=== PATIENT | male | born 1980 | race American Indian/Alaskan Native ===

== ENCOUNTER 2017-07-29 18:37 | Emergency (ER) | payer OTHER ==
[2017-07-29 18:59] VITALS: BP 112/65
[2017-07-29 19:16] LABS: Hematocrit 44.1 % (35.5-45.6); Hemoglobin 14.9 gm/dl (11.8-15.2); Mean Corpuscular HGB Conc 34 % (32-34); Mean Corpuscular Hemoglobin 34 pg (28-32); Mean Corpuscular Volume 99 fl (84-94); Platelet Count 172 K/mm3 (140-440); Red Blood Count 4.46 M/mm3 (3.65-5.03); Red Cell Distribution Width 12.8 % (13.2-15.2); White Blood Count 10.2 K/mm3 (4.5-11.0)
[2017-07-29 19:31] LABS: Anion Gap 19 mmol/L; BUN/Creatinine Ratio 14; Blood Urea Nitrogen 13 mg/dL (9-20); Carbon Dioxide 25 mmol/L (22-30); Chloride 99.7 mmol/L (98-107); Glucose 107 mg/dL (75-100); Potassium 3.8 mmol/L (3.6-5.0); Sodium 140 mmol/L (137-145)
[2017-07-29 21:31] LABS: Mucus,Urine FEW /HPF
[2017-07-29 21:39] LABS: Bilirubin,Urine NEG (Negative); Blood,Urine NEG (Negative); Ketones,Urine NEG (Negative); Leukocyte Esterase,Urine NEG (Negative); Nitrite,Urine NEG (Negative); Protein,Urine <15 mg/dL mg/dL (Negative)
== END 2017-07-29 23:17 | disposition left against medical advice (07) ==
LOC: ED 18:37
DX: M79.672 Pain in left foot (principal); M79.671 Pain in right foot; Z53.21 Procedure and treatment not carried out due to patient leaving prior to being seen by health care provider
CPT/HCPCS: 36415; 80048; 81001; 85027

== ENCOUNTER 2017-08-30 14:35 | Emergency (ER) | payer OTHER ==
[2017-08-30 14:42] VITALS: BP 109/64
[2017-08-30] MEDS ORDERED: MOTRIN PO ONE (15:56)
[2017-08-30] MEDS ORDERED: DECADRON IM ONE (15:56)
[2017-08-30] MEDS ORDERED: REGLAN PO ONE (15:56)
[2017-08-30] MEDS ORDERED: BENADRYL PO ONE (15:56)
--- NOTE | 2017-08-30 16:27 | Emergency Department Report ---
ED Headache HPI - General Chief Complaint: Headache Stated Complaint: HEADACHE/DIZZINESS Time Seen by Provider: 08/30/17 15:38 - History of Present Illness Initial Comments: Patient states 6-year-old -[place] male who presents for headache 5/10 for past 3 days with history of same for the last 10 years patient endorses medications usual regimen NSAIDs currently there is no fever no chills no nausea vomiting patient does endorse sinus pressure and intermittent dizziness . No nausea vomiting no chest pain or shortness of breath headache is in the usual condition location and intensity and duration. Timing/Duration: other (3 days) Quality: moderate Head Injury Location: frontal Recent Head Trauma: no recent headache/trauma Modifying Factors: improves with: movement Associated Symptoms: facial pain, nasal congestion, nasal drainage, sinus infection. denies: numbness in legs/feet, vision changes, weakness Allergies/Adverse Reactions: Allergies No Known Allergies Allergy (Unverified 07/29/17 18:59) Home Medications: Ambulatory Orders Amoxicillin 500 mg PO TID #30 capsule 08/30/17 Ibuprofen 800 mg PO TID PRN #30 tablet 08/30/17 Metoclopramide [Reglan] 10 mg PO TID PRN #21 tab 08/30/17 diphenhydrAMINE [Benadryl CAP] 25 mg PO Q8HR PRN #30 capsule 08/30/17 ED Review of Systems ROS: Stated complaint: HEADACHE/DIZZINESS Other details as noted in HPI Constitutional: denies: chills, fever Eyes: denies: eye pain, eye discharge, vision change ENT: congestion Respiratory: no symptoms reported Cardiovascular: denies: chest pain, palpitations Endocrine: no symptoms reported Gastrointestinal: denies: abdominal pain, nausea, diarrhea Genitourinary: denies: urgency, dysuria Musculoskeletal: denies: back pain, joint swelling, arthralgia Skin: denies: rash, lesions Neurological: headache. denies: weakness (pain, no), numbness, paresthesias, confusion, abnormal gait, vertigo Psychiatric: denies: anxiety, depression Hematological/Lymphatic: denies: easy bleeding, easy bruising ED Past Medical Hx - Past Medical History Previous Medical History?: No - Surgical History Past Surgical History?: No - Social History Smoking Status: Current Every Day Smoker Substance Use Type: None - Medications Home Medications: Home Medications Medication Instructions Recorded Confirmed Last Taken Type Amoxicillin 500 mg PO TID #30 capsule 08/30/17 Unknown Rx Ibuprofen 800 mg PO TID PRN #30 tablet 08/30/17 Unknown Rx Metoclopramide [Reglan] 10 mg PO TID PRN #21 tab 08/30/17 Unknown Rx diphenhydrAMINE [Benadryl CAP] 25 mg PO Q8HR PRN #30 capsule 08/30/17 Unknown Rx ED Physical Exam - General Limitations: No Limitations General appearance: alert, in no apparent distress - Head Head exam: Present: atraumatic - Eye Eye exam: Present: normal appearance, PERRL, EOMI Pupils: Present: normal accommodation - ENT ENT exam: Present: mucous membranes moist, TM's normal bilaterally, normal external ear exam - Expanded ENT Exam Expanded Ear exam: Present: normal external inspection TM/Canal exam: Erythema: Left TM, Right TM Mouth exam: Present: other ( bilat maxillary and frontal sinus pain to palpation no erythema no swelling ). Absent: trismus Throat exam: Positive: normal inspection. Negative: tonsillar erythema, tonsillomegaly, tonsillar exudate, R peritonsillar mass, L peritonsillar mass - Neck Neck exam: Present: normal inspection, full ROM. Absent: lymphadenopathy, thyromegaly - Respiratory Respiratory exam: Present: normal lung sounds bilaterally. Absent: respiratory distress, wheezes, stridor - Cardiovascular Cardiovascular Exam: Present: regular rate, normal rhythm. Absent: systolic murmur, diastolic murmur, rubs, gallop - GI/Abdominal GI/Abdominal exam: Present: soft, normal bowel sounds - Rectal Rectal exam: Present: deferred - Extremities Exam Extremities exam: Present: normal inspection - Back Exam Back exam: Present: normal inspection - Neurological Exam Neurological exam: Present: alert, oriented X3 - Psychiatric Psychiatric exam: Present: normal affect, normal mood - Skin Skin exam: Present: warm, dry, intact, normal color. Absent: rash ED Course Vital Signs 08/30/17 08/30/17 14:36 16:11 Temperature 98.6 F Pulse Rate 69 Respiratory 18 18 Rate Blood Pressure 109/64 O2 Sat by Pulse 96 Oximetry ED Medical Decision Making - Medical Decision Making Patient states 6-year-old -[place] male who presents for headache 5/10 for past 3 days with history of same for the last 10 years patient endorses medications usual regimen NSAIDs currently there is no fever no chills no nausea vomiting patient does endorse sinus pressure and intermittent dizziness . No nausea vomiting no chest pain or shortness of breath headache is in the usual condition location and intensity and duration. Patient appears nontoxic ENT left TM pain and erythema nose boggy mild turbinate erythema and yellow clear discharge pharynx moderate erythma no exudate no lesions no swelling uvula midline no stridor lungs clear bilaterally no wheezing Headache is relieved by Decadron Reglan and Benadryl given in ED plan DC to home with amoxicillin as amoxicillin has worked in the past when necessary Benadryl Reglan for headache ibuprofen for pain and fever patient will follow up with PCP in 2-3 days patient verbalizes understanding and agreement with discharge plan return to ED if symptoms worsen patient's currently AN/ 3 ambulatory gait steady no dizziness no vertigoheadache is improved to 1/10 will DC'd to home in stable condition at this time Critical care attestation.: If time is entered above; I have spent that time in minutes in the direct care of this critically ill patient, excluding procedure time. ED Disposition Clinical Impression: Sinus headache Sinusitis Qualifiers: Sinusitis location: maxillary Chronicity: acute Recurrence: recurrent Qualified Code(s): J01.01 - Acute recurrent maxillary sinusitis Disposition: DC-01 TO HOME OR SELFCARE Is pt being admited?: No Does the pt Need Aspirin: No Condition: Good Instructions: Sinusitis (ED), Acute Headache (ED) Prescriptions: Amoxicillin 500 mg PO TID #30 capsule diphenhydrAMINE [Benadryl CAP] 25 mg PO Q8HR PRN #30 capsule PRN Reason: Headache Ibuprofen 800 mg PO TID PRN #30 tablet PRN Reason: Pain Metoclopramide [Reglan] 10 mg PO TID PRN #21 tab PRN Reason: Headache Referrals: EMERY GRANADO MD [Primary Care Provider] - 3-5 Days Forms: Work/School Release Form(ED) Time of Disposition: 16:38
== END 2017-08-30 16:46 | disposition home or self-care (01) ==
LOC: ED 14:35
DX: J32.0 Chronic maxillary sinusitis (principal); J32.1 Chronic frontal sinusitis; F17.200 Nicotine dependence, unspecified, uncomplicated
CPT/HCPCS: 96372; 99283; J1100; Q0163